=== PATIENT | female | born 1970 | race Caucasian/White ===

== ENCOUNTER 2016-06-13 20:14 | Emergency (ER) | payer OTHER ==
[~2016-06-13] VITALS: Ht 157.5 cm; Wt 90.7 kg
[~2016-06-13 20:14] MED LIST: ADVAIR DISKU 11 UNIT INH; ADVAIR DISKUS 11 DSK INH; AMLODIPINE BES2.5 M1 PO; AMOXICILLIN875 M1 PO; BACLOFEN10 M1 PO; BELSOMRA10 MG PO; CLONAZEPAM1 M2 PO; CLONAZEPAM1 MG PO; CYCLOBENZAPRINE5 M2 PO; ESCITALOPRAM20 MG PO; FIORICET 300 MG1 CAP PO; FIORICET 50-301 EACH PO; GABAPENTIN100 M2 PO; IBU800 MG PO; K-DUR 20MEQ TA20 MEQ PO; LAMICTAL100 M2 PO; LAMOTRIGINE25 MG PO; LEXAPRO20 M1 PO; LIORESAL 10MG T10 MG PO; LISINOPRIL HCTZ1 TAB PO; LISINOPRIL-HYDR1 TA2 PO; MEDROL DOSEPAK1 PAC PO; MONTELUKAST SOD10 MG PO; MOTRIN 600 MG600 MG PO; MOTRIN800 MG PO; PATADAY 2.5 ML2.5 ML OPH; PERCOCET 325 MG1 TA2 PO; PRAVACHOL20 M2 PO; PRINIVIL20 M1 PO; QUETIAPINE FUMA50 MG PO; REGLAN10 MG PO; SEROQUEL XR400 MG PO; SINGULAIR10 M1 PO; TRAMADOL50 MG PO; TYLENOL #31 TAB PO; TYLENOL EXTRA500 M2 PO; VENLAFAXINE HY150 MG PO; VENTOLIN H0.09 MG/Ac INH; VENTOLIN H0.09 MG/Ac PO; ZYRTEC ALLERGY10 MG PO; [UNRECOGNIZED DRUG - OTHER] TOP
[2016-06-13 20:38] VITALS: BP 110/73
--- NOTE | 2016-06-13 21:26 | RADIOLOGY REPORT ---
EXAMINATION: LEFT ANKLE 3 VIEWS CLINICAL INFORMATION: Left ankle pain. COMPARISON: None. TECHNIQUE: AP, lateral, oblique views of the left ankle were obtained. FINDINGS: There are no fractures or dislocations. There is mild soft tissue swelling overlying the lateral malleolus. No ankle joint effusion is identified. There is a small plantar surface calcaneal spur. IMPRESSION: Mild soft tissue swelling without fracture or dislocation. Small plantar surface calcaneal spur.
--- NOTE | 2016-06-13 21:47 | ED ANKLE/FOOT INJURY COMPLAINT ---
History of Present Illness General Chief Complaint: Foot or Ankle Injury Stated Complaint: L FOOT/ANKLE PAIN Source: patient Exam Limitations: no limitations Vital Signs & Intake/Output Vital Signs & Intake/Output Vital Signs Date Time Temp Pulse Resp B/P B/P Pulse O2 O2 Flow FiO2 Mean Ox Delivery Rate 06/13 2037 98.7 94 20 110/73 95 Room Air Allergies Coded Allergies: cat dander (CAT HAIR ITCHY EYES 06/13/16) diphenhydramine (From BENADRYL ALLERGY) (HIVES, BLISTERS 06/18/15) venom-honey bee (BEE VENOM (HONEY BEE)) (AREA SWELLS 06/18/15) Uncoded Allergies: ENVIRONMENTAL (11/22/14) TICKS (CONSTRICTED ARM - PER PT 09/13/14) Reconcile Medications Albuterol Sulfate (Proair Hfa) 90 MCG HFA.AER.AD 2 PUF INH PRN ASTHMA ( Reported) Amlodipine Besylate 2.5 MG TABLET 1 TAB PO DAILY HEART/BP (Reported) Baclofen 10 MG TABLET 1 TAB PO PRN MUSCLE SPASMS (Reported) Clonazepam 1 MG TABLET 1 TAB PO BID ANXIETY (Reported) Escitalopram Oxalate (Lexapro) 20 MG TABLET 1 TAB PO DAILY MENTAL HEALTH ( Reported) Fluticasone-Salmeterol (Advair 100-50 Diskus) 100 MCG-50 MCG/DOSE BLST.W.DEV 1 PUF INH BID ASTHMA (Reported) Gabapentin 100 MG CAPSULE 1 CAP PO QAM EPILEPSY (Reported) Gabapentin 300 MG CAPSULE 1 CAP PO QPM EPILEPSY (Reported) Lamotrigine (Lamictal) 100 MG TABLET 2 TAB PO BID EPILEPSY (Reported) Lisinopril (Prinivil) 20 MG TABLET 1 TAB PO DAILY BP (Reported) Montelukast Sodium (Singulair) 10 MG TABLET 1 TAB PO QPM ASTHMA (Reported) Pravastatin Sodium (Pravachol) 20 MG TABLET 1 TAB PO DAILY CHOLESTEROL ( Reported) Suvorexant (Belsomra) 10 MG TABLET 1 TAB PO QPM SLEEP (Reported) Triage Note: PT TO ED C/O LEFT FOOT/ANKLE PAIN 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 HAS SABAS WRAP AND CRUTCHES FROM HOME. MEDICATED WITH 800 MG IBUPROFIN IN TRIAGE Triage Nurses Notes Reviewed? yes Occurred: just prior to arrival Duration: hour(s): (8) Timing: no prior history Severity: moderate Severity Numbers: 8 Pain/Injury Location: Left: Foot, Ankle. Method of Injury: twisted Modifying Factors: Improves With: immobilization. Worsens With: movement. HPI: Patient is a 46-year-old female presenting to the emergency department chief complaint of left ankle and left foot pain is benign for several hours after she stepped in a ditch. Pain is achy throbbing worse with movement and weightbearing. Denies taking anything for pain prior to arrival. No numbness or tingling. Denies any other injury. No head injury or loss of consciousness. Denies numbness or tingling. She reports that the pain intermittently radiates to the left knee. (GAGE ROMO) Past History Travel History Traveled to [place] past 21 day No Medical History Any Pertinent Medical History? see below for history Neurological: migraine, BRAIN TUMOR EENT: NONE Cardiovascular: hypertension Respiratory: asthma, bronchitis, pneumonia Gastrointestinal: NONE Hepatic: NONE Renal: NONE Musculoskeletal: osteoarthritis, CAT BITE/BONE INFECTION ECZEMA MISSING CARTLIDGE R KNEE Psychiatric: anxiety, depression, PANICK ATTACKS PTSD Endocrine: NONE Blood Disorders: NONE Cancer(s): NONE MRI CT TECH/Reproductive: NONE Tetanus Vaccine: 01/15/14 Surgical History Surgical History: SHOULDER REPLACEMENT HYSTERECTOMY TUBAL LIGATION Psychosocial History What is your primary language Czech Tobacco Use: Current Not Daily ETOH Use: denies use Illicit Drug Use: denies illicit drug use Family History Hx Contributory? No (GAGE ROMO) Review of Systems Review of Systems Constitutional: Reports: no symptoms. Comments Review of systems: See HPI, All other systems negative. Constitutional, no chills fever or weight loss HEENT: No visual changes no sore throat no congestion Cardiovascular: No chest pain Skin, no jaundice no rashes Respiratory: No dyspnea cough sputum or hemoptysis GI: No nausea no vomiting Muscle skeletal: no back pain, no neck pain, Neurologic: No numbness Psych: No stress anxiety Immunology: No splenectomy or history of AIDS (GAGE ROMO) Physical Exam Physical Exam General Appearance: well developed/nourished, no apparent distress, alert, awake , comfortable Leg/Knee/Thigh Left: pain Comments: Well-developed well-nourished person in no acute distress HEENT: Nose is atraumatic. Neck: Full range of motion, no C-spine tenderness. Back: Nontender Cardiovascular: Regular rate and rhythms no murmurs rubs or gallops, normal JVP Respiratory: Chest nontender. No respiratory distress.breath sounds clear to auscultation bilaterally Extremity: Left Ankle and foot with moderate tenderness laterally over the lateral ligaments. No bony tenderness. No medial tenderness. Range of motion is limited due to pain. No instability is noted. Skin is intact, mild swelling and ecchymosis laterally. The foot is neurovascularly intact with sensation and motor grossly intact. Able to move all toes. No calf pain bilaterally. Neuro: Alert oriented x3, motor sensory normal and a large ovaries bilaterally. Skin: No appreciable rash on exposed skin, skin is warm and dry. Psych: Mood and affect is normal, memory and judgment is normal. (KIANA OLEA,GAGE) Progress Differential Diagnosis: fracture, dislocation, sprain, contusion Plan of Care: Placed an Sabas wrap will follow with PCP. Diagnostic Imaging: Viewed by Me: Radiology Read. Discussed w/RAD: Radiology Read. Radiology Impression: PATIENT: JOSÉ MIGUEL QUARLES PRESENT AGE: 46 PATIENT ACCOUNT NO: [id number] : 68 LOCATION: [facility] ORDERING PHYSICIAN: WILLIAM HUFF MD SERVICE DATE: 06/13/16 EXAM TYPE: RAD - XRY-ANKLE 3 OR MORE VIEWS L EXAMINATION: LEFT ANKLE 3 VIEWS CLINICAL INFORMATION: Left ankle pain. COMPARISON: None. TECHNIQUE: AP, lateral, oblique views of the left ankle were obtained. FINDINGS: There are no fractures or dislocations. There is mild soft tissue swelling overlying the lateral malleolus. No ankle joint effusion is identified. There is a small plantar surface calcaneal spur. IMPRESSION: Mild soft tissue swelling without fracture or dislocation. Small plantar surface calcaneal spur., PATIENT: JOSÉ MIGUEL QUARLES PRESENT AGE: 46 PATIENT ACCOUNT NO: [id number] : LOCATION: [facility] ORDERING PHYSICIAN: GAGE OLEA SERVICE DATE: 06/13/16 EXAM TYPE: RAD - XRY-FOOT COMPLETE, LEFT EXAMINATION: XR FOOT, LEFT CLINICAL INFORMATION: Pain. No injury. COMPARISON: None TECHNIQUE: AP, lateral, and oblique views of the left foot. FINDINGS: No fracture. No dislocation. No arthropathy. Joint spaces are normal. There is a small plantar calcaneal spur. No soft tissue abnormality. IMPRESSION: Small plantar calcaneal spur. Foot is otherwise normal. 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 (GAGE ROMO) Departure Departure Time of Disposition: 2217 Disposition: HOME OR SELF CARE Condition: Stable Clinical Impression Primary Impression: Foot sprain Qualifiers: Encounter type: initial encounter Laterality: left Qualified Code: S93.602A - Unspecified sprain of left foot, initial encounter Referrals: LINDA JENKINS,BARRERA BROWN MD,LETICIA Farris (PCP/Family) Additional Instructions: Follow-up with your primary care physician call to make an appointment. Rest ice and elevate. Wear Sabas wrap for support. Take [id number] Motrin and Tylenol instructed for pain. Return for worsening symptoms or concerns. Departure Forms: Customer Survey General Discharge Information (GAGE ROMO) PA/LINING MECHANIC Co-Sign Statement Statement: ED Attending supervision documentation- [] I saw and evaluated the patient. I have also reviewed all the pertinent lab results and diagnostic results. I agree with the findings and the plan of care as documented in the PA's/LINING MECHANIC's documentation. [x] I have reviewed the ED Record and agree with the PA's/LINING MECHANIC's documentation. [] Additions or exceptions (if any) to the PAs/LINING MECHANIC's note and plan are summarized below: [] (DARIA JENKINS,WILLIAM Sanders)
[2016-06-13] MEDS ORDERED: GABAPENTIN300 M2 PO (21:53)
[2016-06-13] MEDS ORDERED: ADVAIR 100-501 EACH INH (21:55)
[2016-06-13] MEDS ORDERED: PROAIR HFA8.5 GM INH (21:55)
--- NOTE | 2016-06-13 22:16 | RADIOLOGY REPORT ---
EXAMINATION: XR FOOT, LEFT CLINICAL INFORMATION: Pain. No injury. COMPARISON: None TECHNIQUE: AP, lateral, and oblique views of the left foot. FINDINGS: No fracture. No dislocation. No arthropathy. Joint spaces are normal. There is a small plantar calcaneal spur. No soft tissue abnormality. IMPRESSION: Small plantar calcaneal spur. Foot is otherwise normal.
== END 2016-06-13 22:23 ==
LOC: ERH 20:14
DX: S93.602A Unspecified sprain of left foot, initial encounter (principal); W17.2XXA Fall into hole, initial encounter; Y92.9 Unspecified place or not applicable; Y93.9 Activity, unspecified
CPT/HCPCS: 73610-LT; 73630-LT

== ENCOUNTER 2016-09-12 15:55 | Emergency (ER) | payer OTHER ==
[~2016-09-12] VITALS: Ht 172.7 cm; Wt 72.6 kg
[~2016-09-12 15:55] MED LIST changes: +ADVAIR 100-501 EACH INH; +GABAPENTIN300 M2 PO; +PROAIR HFA8.5 GM INH
[2016-09-12 16:44] LABS: ABSOLUTE BASOPHIL COUNT 0 /CUMM (0.0-0.2); ABSOLUTE EOSINOPHIL COUNT 0.1 /CUMM (0.0-0.7); ABSOLUTE GRANULOCYTE CT 6.3 /CUMM (1.4-6.5); ABSOLUTE LYMPH COUNT 2.9 /CUMM (1.2-3.4); ABSOLUTE MONOCYTE COUNT 0.6 /CUMM (0.10-0.60); BASOPHIL % 0.4 % (0.0-2.0); EOSINOPHIL % 1.2 % (0-5); GRANULOCYTE % 63.3 % (42.2-75.2); HEMATOCRIT 40.4 % (37-47); MEAN CORPUSCULAR HGB 26.9 PG (27.0-31.0); MEAN CORPUSCULAR HGB CONC 32.8 G/DL (33.0-37.0); MEAN PLATELET VOLUME 6.8 FL (7.4-10.4); PLATELET COUNT 308 /CUMM (130-400); RBC DISTRIBUTION WIDTH 13.7 % (11.5-14.5); RED BLOOD CELL CT 4.92 /CUMM (4.20-5.40); WHITE BLOOD CELL COUNT 9.9 /CUMM (4.8-10.8)
--- NOTE | 2016-09-12 17:06 | ED GENERAL ADULT ---
History of Present Illness General Chief Complaint: ETOH/Drug Related Complaint Stated Complaint: OD YESTERDAY ADMITTED TO [facility] STILL FEELING SICK Source: patient Exam Limitations: no limitations Vital Signs & Intake/Output Vital Signs & Intake/Output Vital Signs Date Time Temp Pulse Resp B/P B/P Pulse O2 O2 Flow FiO2 Mean Ox Delivery Rate 09/13 1045 97.1 76 18 153/89 98 09/13 0910 97.8 69 16 152/99 09/13 0822 97.8 69 16 152/99 98 Room Air 09/13 0639 96.5 76 20 169/77 09/13 0637 96.5 72 20 169/77 94 Room Air 09/13 0436 66 16 130/68 09/13 0435 66 16 130/68 95 Room Air 09/13 0241 96.9 63 20 132/67 09/13 0241 96.9 63 20 132/67 93 Room Air 09/13 0030 78 18 09/13 0030 97.7 78 18 129/78 96 09/12 2230 73 16 132/88 09/12 2223 977.1 73 16 132/88 94 Room Air 09/12 1943 80 18 128/76 09/12 1943 80 128/76 96 Room Air 09/12 1830 97 ED Intake and Output 09/13 0000 09/12 1200 Intake Total 0 Output Total Balance 0 Intake, Oral 0 Patient 160 lb Weight Allergies Coded Allergies: cat dander (CAT HAIR ITCHY EYES 06/13/16) diphenhydramine (From BENADRYL ALLERGY) (HIVES, BLISTERS 06/18/15) venom-honey bee (BEE VENOM (HONEY BEE)) (AREA SWELLS 06/18/15) Uncoded Allergies: ENVIRONMENTAL (11/22/14) TICKS (CONSTRICTED ARM - PER PT 09/13/14) Reconcile Medications Albuterol Sulfate (Proair Hfa) 90 MCG HFA.AER.AD 2 PUF INH PRN ASTHMA ( Reported) Amlodipine Besylate 2.5 MG TABLET 1 TAB PO DAILY HEART/BP (Reported) Baclofen 10 MG TABLET 1 TAB PO PRN MUSCLE SPASMS (Reported) Clonazepam 1 MG TABLET 1 TAB PO BID ANXIETY (Reported) Escitalopram Oxalate (Lexapro) 20 MG TABLET 1 TAB PO DAILY MENTAL HEALTH ( Reported) Fluticasone-Salmeterol (Advair 100-50 Diskus) 100 MCG-50 MCG/DOSE BLST.W.DEV 1 PUF INH BID ASTHMA (Reported) Gabapentin 100 MG CAPSULE 1 CAP PO QAM EPILEPSY (Reported) Gabapentin 300 MG CAPSULE 1 CAP PO QPM EPILEPSY (Reported) Lamotrigine (Lamictal) 100 MG TABLET 2 TAB PO BID EPILEPSY (Reported) Lisinopril (Prinivil) 20 MG TABLET 1 TAB PO DAILY BP (Reported) Montelukast Sodium (Singulair) 10 MG TABLET 1 TAB PO QPM ASTHMA (Reported) Pravastatin Sodium (Pravachol) 20 MG TABLET 1 TAB PO DAILY CHOLESTEROL ( Reported) Suvorexant (Belsomra) 10 MG TABLET 1 TAB PO QPM SLEEP (Reported) Triage Note: PT STATES THAT YESTERDAY SHE WAS TAKING TO [facility] BY AMBULANCE YESTERDAY DUE TO SHE TOOK A DOUBLE DOSE OF HER PSYCHE MEDS, TOOK 2 GABAPENTIN 100MG PT COMES IN ER TODAY DUE TO SHE STILL DOESNT FEEL WELL. PT DIFFICULT TO INTERVIEW AT TRIAGE, FALLS ASLEEP IN CHAIR. CHARGE NURSE AWARE Triage Nurses Notes Reviewed? yes Onset: Abrupt Duration: day(s): (1), constant, continues in ED, getting worse Timing: recent history Injury Environment: home Severity: mild, moderate No Modifying Factors: none LMP (ages 10-50): unknown : No Patient currently breastfeeds: No HPI: 46-year-old female with a past medical history of hypertension, hyperlipidemia, anxiety and depression presents with possible drug overdose. Patient states she was seen at [facility] yesterday after she accidentally took a double dose of 4 of her medications. Patient states she yesterday she accidentally took 2 doses of her gabapentin, Lamictal, Lexapro and another unknown medication. Patient became very lethargic and was taken [facility] where she was and released later that day. She is feeling better and took her medications again today around 1:00. Shortly thereafter she began to develop lethargy and headache again similar to yesterday. She reports fearing feeling very tired and wanting to sleep. She also reports associated headache. This is the same pain she had yesterday. Denies any additional drug or alcohol use. No other triggering events. (ALFREDO GARCIA,DOM) Past History Travel History Traveled to [place] past 21 day No Medical History Any Pertinent Medical History? 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 No (ALFREDO GARCIA,DOM) Review of Systems Review of Systems Constitutional: Reports: malaise. EENTM: Reports: no symptoms. Respiratory: Reports: no symptoms. Cardiovascular: Reports: no symptoms. GI: Reports: no symptoms. Genitourinary: Reports: no symptoms. Musculoskeletal: Reports: no symptoms. Skin: Reports: no symptoms. Neurological/Psychological: Reports: weakness, other (fatigue, lethargic). Hematologic/Endocrine: Reports: no symptoms. Immunologic/Allergic: Reports: no symptoms. 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 Skin: intact, normal color, warm/dry Comments: Head: Atraumatic, normocephalic Eyes: EOMI bilaterally, PERRLA, conjunctiva are not injected, no discharge, no nystagmus, fundus grossly normal bilaterally Nose: Atraumatic, no rhinorrhea, mucosa is not erythematous, no epistaxis. Sinuses are non-tender Ears: TM pearly faye color bilaterally, external canal is clear, no discharge, hearing is normal Mouth: Appropriate dentition, no gingival bleeding, moist mucus membranes, no oral lesions, tonsils not erythematous or enlarged and free of exudate. Uvula rises midline. Neck: Supple, full active ROM, no lymphadenopathy, no midline tenderness to palpation, no thyromegaly, no tracheal deviation. Back: Non-tender, full active ROM, no scoliosis, no CVA tenderness Cardiovascular: regular rate and rhythm, no murmurs, rubs, or gallops. No JVD Respiratory: Chest is nontender. Regular respiratory rate and effort. No accessory muscle use. Lungs clear to auscultation bilaterally. Abdomen: Soft, non-tender, non-distended, no organomegaly. No rebound tenderness or guarding. Normoactive bowel sounds. Extremities: No edema. No gross deformities. No joint swelling. No calf swelling or tenderness. Full active and passive ROM. Strength 5/5 in upper and lower extremities. Peripheral pulses 2+ bilaterally, Patellar DTR 2+ Neuro: No confusion. Motor and sensory function is intact. Appropriate gait. Cerebellar function intact. Skin: Warm and dry. Appropriate turgor. No lesions or bruising. No appreciable rash on exposed skin. Core Measures ACS in differential dx? No CVA/TIA Diagnosis: No Severe Sepsis Present: No Septic Shock Present: No (ALFREDO GARCIA,DOM) Progress Differential Diagnoses I considered the following diagnoses in my evaluation of the patient: [Drug overdose, drug withdrawal, electrolyte abnormality, hypoxia, hypoglycemia, intracranial hemorrhage, intracranial mass] Plan of Care: Orders Procedure Date/time Status Regular Diet 09/13 B Active Add-on Test (ER Only) 09/13 1017 Active ED CRISIS PSYCH CONSULT 09/[address] in observation 09/12 1946 Active Patient Data 09/12 1946 Active Vital Signs 09/12 1946 Active CIWA 09/12 1946 Active Code Status 09/12 1946 Active Add-on Test (ER Only) 09/12 1910 Active 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 She appears very lethargic. We'll check basic blood work and CT scan ahead and contact poison control. Patient's pupils are dilated so opiate intoxication is unlikely. Patient was straight cathed in order to do a urine drug screen and she had very small amount of urine. She'll be given a liter of normal saline bolus. The nurse spoke with poison control and they recommended supportive care at this time. He also reported that is unlikely the patient would be this lethargic with the stated medications that she took. They recommended checking Tylenol and salicylate levels which have been done. Poison control also recommends a psych eval. Patient will continue to be monitored. Patient continues to be very lethargic. It would not be safe to discharge her home in this condition. She is hemodynamically stable and her lab work is within normal limits. CT scan of the head is still pending. She'll be In ED observation overnight for evaluation and psych eval in the morning. She'll require IV fluids, monitoring of vital signs, neurochecks, and then psych eval in the morning. Patient signed out to Dr. Allred. (DOM FUENTES PA-C) 09/13/2016 7:44:44 AM Patient signed out to me by Dr. Allred. Pending crisis evaluation and disposition. 11:42 AM PATIENT CLAERED BY PSYCH FOR DISCHARGE. RECOMMENDS F/U WITH PCP AND WITH NEUROLOGY. (KEITH MACE MD) Initial ED EKG: no ST T wave changes, sinus rhythm, borderline prolonged qt Hand-Off Endorsed To: JAYNE ALLRED MD Endorsed Time: 2044 Pending: CT, consult (DOM FUENTES PA-C) Differential Diagnoses I considered the following diagnoses in my evaluation of the patient: Hand-Off Endorsed To: KEITH MACE MD Endorsed Time: 07 Pending: consult (JAYNE ALLRED MD) Departure Departure Condition: Stable Clinical Impression Primary Impression: Drug intoxication Qualifiers: Complication of substance-induced condition: uncomplicated Qualified Code: F19.920 - Other psychoactive substance use, unspecified with intoxication, uncomplicated Departure Forms: Customer Survey General Discharge Information Observation Note Spoke With: JAYNE ALLRED MD Physician Advisor Notified: JAYNE ALLRED MD Place Patient In: ED Observation Rationale for Observation: My rational for observation is as follows [Patient continues to be very lethargic. It would not be safe to discharge her home in this condition. She is hemodynamically stable and her lab work is within normal limits. CT scan of the head is still pending. She'll be In ED observation overnight for evaluation and psych eval in the morning. She'll require IV fluids, monitoring of vital signs, neurochecks, and then psych eval in the morning.]. (DOM FUENTES PA-C) Departure Time of Disposition: 1141 Disposition: HOME OR SELF CARE Referrals: ANSELMO JENKINS,NADIA MCELROY MD,KAEL (PCP/Family) Additional Instructions: FOLLOW UP WITH YOUR THERAPIST THIS WEEK ON THURSDAY AND FOLLOW UP WITH YOUR PCP FOR REEVALUATION AND WITH NEUROLOGY. RETURN TO THE ER NEEDED. PA/ADMISSIONS GATE ATTENDANT Co-Sign Statement Statement: ED Attending supervision documentation- [] I saw and evaluated the patient. I have also reviewed all the pertinent lab results and diagnostic results. I agree with the findings and the plan of care as documented in the PA's/ADMISSIONS GATE ATTENDANT's documentation. [] I have reviewed the ED Record and agree with the PA's/ADMISSIONS GATE ATTENDANT's documentation. [] Additions or exceptions (if any) to the PAs/ADMISSIONS GATE ATTENDANT's note and plan are summarized below: [] (RODRI JENKINS,KEITH) Critical Care Note Critical Care Note Critical Care Time: non-applicable (DOM FUENTES PA-C) ED Attending Observation Initial Observation Note: I have seen and personally examined JOSÉ MIGUEL QUARLES on 09/12/16 at 1947. I agree with the current emergency department documentation. The disposition (admission or discharge) is uncertain at this time, she needs a period of observation for the following reason(s): [Patient is lethargic and hard to arouse. Patient is protecting her own airway at this time. Patient will need close monitoring with gentle hydration and frequent vital signs. This used were we'll need to be followed as region not know for sure what she ingested. Poison control has been contacted. Patient will need crisis evaluation] The ED Nurse caring for this patient has been personally informed as to what the patient is being observed for. Observation Re-Evaluation: I have reevaluated JOSÉ MIGUEL QUARLES on 09/13/16 at 0304. The physical findings that support the continued need to observe this patient include [patient is arousable however still sedated. Patient is more awake than she was earlier. Patient denies taking extra medication. We'll continue close monitoring and crisis evaluation. Her lungs are clear to auscultation bilaterally. Her cardiac exam is regular rate and rhythm.]. (BRIGIDA JENKINS,JAYNE Huff) Observation Re-Evaluation: I have reevaluated JOSÉ MIGUEL QUARLES on 09/13/16 at 1047. The physical findings that support the continued need to observe this patient include . 10:47 AM PATIENT AWAKE, ALERT, ORIENTED. Waiting for crisis disposition. Patient states that this is not consistent with a postictal state. (KEITH MACE MD) I have reevaluated JOSÉ MIGUEL QUARLES on 09/13/16 at 0304. The physical findings that support the continued need to observe this patient include [patient is arousable however still sedated. Patient is more awake than she was earlier. Patient denies taking extra medication. We'll continue close monitoring and crisis evaluation. Her lungs are clear to auscultation bilaterally. Her cardiac exam is regular rate and rhythm.]. (BRIGIDA JENKINS,JAYNE Huff) Observation Re-Evaluation: I have reevaluated JOSÉ MIGUEL QUARLES on 09/13/16 at 1047. The physical findings that support the continued need to observe this patient include . 10:47 AM PATIENT AWAKE, ALERT, ORIENTED. Waiting for crisis disposition. Patient states that this is not consistent with a postictal state. (KEITH MACE MD)
--- NOTE | 2016-09-12 21:41 | CT SCAN REPORT ---
EXAMINATION: CT HEAD WITHOUT CONTRAST CLINICAL INFORMATION: Altered mental status and lethargy, possible overdose. COMPARISON: CT 11/02/2015. MRI 12/20/2015. TECHNIQUE: Contiguous axial imaging was performed from the skull base to vertex without intravenous administration of contrast. DLP: 631 mGy-cm FINDINGS: There is no evidence of acute intracranial hemorrhage or territorial infarction. No abnormal mass effect or midline shift is seen. Maldonado to white matter differentiation is well preserved. No extra-axial fluid collections are identified. The ventricles are normal in size. There is a stable appearing 1 cm hyperdense lesion adjacent to the falx superiorly along the superior sagittal sinus near the vertex on the left most consistent with a small meningioma unchanged compared with the previous exam. No other focal abnormalities are seen. The osseous structures and soft tissues are normal. Frontal sinuses are aplastic. The mastoid air cells and visualized portions of the paranasal sinuses are otherwise well developed. Mucosal thickening in the right maxillary sinus posteriorly and inferiorly has improved with a residual 1.2 cm retention cyst or polyp. IMPRESSION: 1. No acute intracranial process is identified. 2.Findings most consistent with a stable appearing left-sided meningioma superiorly in the frontoparietal region near the vertex.
--- NOTE | 2016-09-13 10:08 | ED PSYCH CRISIS CONSULTATION ---
Crisis Consult Basic Assessment Date of Consult: 09/13/16 Responsible Person/Accompanied By: self Insurance Authorization: Insurance #1: Insurance name: [employer] Phone number: Policy number: [id number] Group number: Authorization number: ED Provider: Patient's ED Provider: DOM FUENTES PA-C Primary Care Physician: Patient's PCP: KAEL MCELROY MD PCP's Current Psychiatrist: n/a Chief Complaint: ETOH/Drug Related Complaint Patient's Quote: "I am feeling much better." Present Illness: The pt is a 46yo female who reports she took an Uber to the ED due to feeling dizzy, lightheaded, sleepy and shaky in addition to having a headache. The ED documentation notes the pt arrived at 1629 on 09/12/16, was lethargic and unable to recall events from today. During this assessment at 0815 on 09/13/16 the pt presented alert, oriented, pleasant and cooperative with goal directed speech. The pt stated she is feeling better and denied the complaints present during her arrival. The pt reports that on 09/11/16 she took her morning medication then went back to sleep. The pt states states she woke up and forgot she took her morning medications so she took them a second time. The pt reports a short time later she was dizzy and sleepy so she went to [place]. The pt reports she was discharged around 1800 still feeling drowsy. The pt stated she went home and slept until 1300 on . The pt stated after waking up she took her medication as prescribed. The pt stated she cannot remember the names of all the medication she is prescribed. The pt stated she then went to [place] to address a disputed past debt. The pt stated while at the [facility] she started not feeling well so she came to the [facility] ED. The pt denies current and past SI, HI, AH and VH. The pt reports she has a hx of depression, anxiety, panic disorder and epilepsy. The pt denies any past psychiatric hospitalizations. The pt denies any drug or alcohol use and her toxicology screen is negative. The pt denies any problems with her appetite and reports she has a long hx of waking up several times per night. The pt reports Dr. Mcelroy has been her PCP for the past 1 month and prescribes her medication. The pt stated her prior PCP, Dr. Mast, prescribed her medication before Dr. Mcelroy. The pt stated she is in individual therapy and has seen Prema Rae weekly for the past 3 years. The pt also reports therapist Willy Newton from [facility] comes to her home 2x per week over the past 1 year. The pt is unemployed, was in 2011 and lives with her 16yo daughter and 14yo son. Left a for pts 16yo daughter Suzie ([phone]). Spoke by phone with therapist Prema Simms ([phone]) who stated she does not believe the pt is suicidal. Ms. Simms stated she is not aware of any current or past SI. Ms. Simms stated the pt is compliant with weekly individual therapy and presents organized. Ms. 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 Ms. Simms stated the pt may need a visiting nurse to help organized her medication. Ms. Simms stated the pts previous PCP was not responsive so the pt switched to Dr. Mcelroy. Ms. Simms stated the pts next therapy appt is noon on 09/17/16. Pt's presentation discussed with Dr. Monet, plan is for discharge and continue in outpatient treatment as well as with her PCP. The pt stated she will track taking her medication by writing it down as well as using her pill organizer. The pt and Prema Simms are in agreement with this plan. Patient's Address: [address] [place] [address] Other Phone Number: Who Do You Live With? Family Family/Informants Interviewed: Therapist Prema Simms Allergies - Coded Allergies: cat dander (CAT HAIR ITCHY EYES 06/13/16) diphenhydramine (From BENADRYL ALLERGY) (HIVES, BLISTERS 06/18/15) venom-honey bee (BEE VENOM (HONEY BEE)) (AREA SWELLS 06/18/15) Uncoded Allergies: ENVIRONMENTAL (11/22/14) TICKS (CONSTRICTED ARM - PER PT 09/13/14) Current Medications - Scheduled Medications Amlodipine Besylate 2.5 MG TABLET 1 TAB PO DAILY HEART/BP #30 (Reported) Entered as Reported by SHANTAL LAWS on 06/27/15 1443 Clonazepam 1 MG TABLET 1 TAB PO BID ANXIETY (Reported) Entered as Reported by ADELIA GIBSON on 09/13/14 1650 Escitalopram Oxalate (Lexapro) 20 MG TABLET 1 TAB PO DAILY MENTAL HEALTH ( Reported) Entered as Reported by ADELIA GIBSON on 11/13/14 1937 Fluticasone-Salmeterol (Advair 100-50 Diskus) 100 MCG-50 MCG/DOSE BLST.W.DEV 1 PUF INH BID ASTHMA #60 (Reported) Entered as Reported by ADELIA GIBSON on 06/13/162154 Gabapentin 100 MG CAPSULE 1 CAP PO QAM EPILEPSY #150 (Reported) Entered as Reported by SHANTAL LAWS on 06/27/15 144 Gabapentin 300 MG CAPSULE 1 CAP PO QPM EPILEPSY (Reported) Entered as Reported by ADELIA GIBSON on 06/13/162152 Lamotrigine (Lamictal) 100 MG TABLET 2 TAB PO BID EPILEPSY (Reported) Entered as Reported by SHANTAL LAWS on 06/27/15 144 Lisinopril (Prinivil) 20 MG TABLET 1 TAB PO DAILY BP (Reported) Entered as Reported by ADELIA GIBSON on 11/13/14 1939 Montelukast Sodium (Singulair) 10 MG TABLET 1 TAB PO QPM ASTHMA (Reported) Entered as Reported by ADELIA GIBSON on 09/13/14 1651 Pravastatin Sodium (Pravachol) 20 MG TABLET 1 TAB PO DAILY CHOLESTEROL ( Reported) Entered as Reported by ADELIA GIBSON on 09/13/14 1648 Suvorexant (Belsomra) 10 MG TABLET 1 TAB PO QPM SLEEP #30 (Reported) Entered as Reported by SHANTAL LAWS on 09/07/15 1416 Scheduled PRN Medications Albuterol Sulfate (Proair Hfa) 90 MCG HFA.AER.AD 2 PUF INH PRN ASTHMA #9 ( Reported) Entered as Reported by ADELIA GIBSON on 06/13/162154 Baclofen 10 MG TABLET 1 TAB PO PRN MUSCLE SPASMS #90 (Reported) Entered as Reported by SHANTAL LAWS on 11/02/15 1523 Laboratory Results: Laboratory Tests 09/12/16 1925: Urine Opiates Screen < 100.00, Methadone Screen 68, Barbiturate Screen < 60, Ur Phencyclidine Scrn < 6.00, Amphetamines Screen < 100, U Benzodiazepines Scrn 104 , Urine Cocaine Screen < 50, Urine Cannabis Screen < 5.00 09/12/16 1637: Anion Gap 12, Estimated GFR 59 L, BUN/Creatinine Ratio 15.0, Glucose 105 H, Calcium 9.9, Magnesium 2.4 H, Total Bilirubin 1.0, AST 31, ALT 40, Alkaline Phosphatase 83, Troponin I < 0.01, Total Protein 7.9, Albumin 4.6, Globulin 3.3, Albumin/Globulin Ratio 1.4, CBC w Diff NO MAN DIFF REQ, RBC 4.92, MCV 82.0, MCH 26.9 L, RDW 13.7, MPV 6.8 L, Gran % 63.3, Lymphocytes % 29.4, Monocytes % 5.7, Eosinophils % 1.2, Basophils % 0.4, Absolute Granulocytes 6.3, Absolute Lymphocytes 2.9, Absolute Monocytes 0.6, Absolute Eosinophils 0.1, Absolute Basophils 0, PUBS MCHC 32.8 L, Salicylates < 1.0, Acetaminophen < 10.0 L, Serum Alcohol < 10.0 Past History Past Medical History Neurological: migraine, BRAIN TUMOR EENT: NONE Cardiovascular: hypertension Respiratory: asthma, bronchitis, pneumonia Gastrointestinal: NONE Hepatic: NONE Renal: NONE Musculoskeletal: osteoarthritis, CAT BITE/BONE INFECTION ECZEMA MISSING [place] R KNEE Psychiatric: anxiety, depression, PANICK ATTACKS PTSD Endocrine: NONE Blood Disorders: NONE Cancer(s): NONE 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 Response to Treatment Fair Diagnosis by History: Pt reports depression, anxiety and Panic disorder. Substance Use/Abuse History Drug Use/Abuse Substances Used/Abused No Substance Abuse Treatment Substance Abuse Treatment Past Substance Abuse [place] No Current Mental Status Mental Status Orientation: Person, Place, Situation Affect: WNL Speech: WNL Neuro-vegetative: WNL Appearance Appearance- Dress/Hygiene: appropriate Behaviors Thought Process: WNL Thought Content: WNL Memory: WNL Insight: Fair SI/HI Risk Assessment Past Suicidal Ideation/Attempts No Current Suicidal Ideation/Att No Past Homicidal Ideation/Att: No Current Homicidal Ideation/Attempts No Degree of Intent: None Danger To: n/a Gravely Disabled: n/a Risk Factors: chronic/serious med cond. Lethality Ratin (mild) PTSD Checklist PTSD Done? patient declined ED Management Sitter: Yes Restraints: No DSM5/PS Stressors/Medical Prob Diagnosis' (DSM 5, Stressors, Medical): F32.9 Unspecified Depressive Disorder F41.9 Unspecified Anxiety Disorder Current GAF: 49 Departure Disposition Psych Medical Clearance Date: 09/13/16 Medically Cleared at: 0800 Time Started: 0800 Time Ended: 0815 Psychiatrist Consulted: Dr. Monet Date Disposition Established: 09/13/16 Time Disposition Established: 1150 Plan for Disposition - Modality: Outpatient Facility: [facility] Follow-up Appt Date: 09/17/16 Follow-Up Appt Time: 1200 Rationale for Disposition: Pt is not in need of psychiatric hospitalization. Referrals KAEL MCELROY MD (PCP/Family)
[2016-09-13 10:45] VITALS: BP 153/89
== END 2016-09-13 12:38 ==
LOC: ERH 15:55 → CMPBEDREQ 09-14 09:31
PROVIDERS: Emergency Medicine
DX: T42.75XA Adverse effect of unspecified antiepileptic and sedative-hypnotic drugs, initial encounter (principal); R51 Headache
CPT/HCPCS: 80307; 93005; 93010; G0463; G0480